=== PATIENT | male | born 1950 | race Caucasian/White ===

== ENCOUNTER 2019-12-02 09:06 | Outpatient (REF) | payer SELFPAY ==
[2019-12-02 09:07] VITALS: BP 141/98; PULSE 97; RESP 16; TEMP 36.6; O2SAT 98; BMI 21.7
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
--- NOTE | 2019-12-02 11:34 | DCINST.ED_ITS ---
ED Disposition - Plan for ED Patient: Disposition: Home or Assisted Living Diagnosis: Mandibular fracture Instructions: ED Jaw Fx Prescriptions: Hydrocodone Bitart/Apap 5-325 [[place] 5MG-325MG] 1 tab PO Q6H PRN PRN 3 Days #10 tab PRN Reason: Pain Prescription Printed Referrals: NOT,DEFINED [NON-STAFF] - Devaughn Howard DDS [STAFF PHYSICIAN] -
== END 2019-12-02 11:40 | disposition home or self-care (01) ==
LOC: ED 09:06
PROVIDERS: Visit Provider Emergency Medicine
DX: S02.609A Fracture of mandible, unspecified, initial encounter for closed fracture (principal); S00.01XA Abrasion of scalp, initial encounter; Y04.0XXA Assault by unarmed brawl or fight, initial encounter; Y93.9 Activity, unspecified; Y92.9 Unspecified place or not applicable; Y99.9 Unspecified external cause status; E11.9 Type 2 diabetes mellitus without complications; I10 Essential (primary) hypertension
CPT/HCPCS: 70450; 70486